=== PATIENT | male | born 1990 | race Caucasian/White ===

== ENCOUNTER 2017-09-02 10:04 | Outpatient (CLI) | payer OTHER ==
[~2017-09-02 10:04] MED LIST: ADDERALL 10 MG10 MG PO
== END 2017-09-02 11:28 | disposition home or self-care (01) ==
LOC: LAB 10:04
DX: Z00.00 Encounter for general adult medical examination without abnormal findings (principal); Z13.220 Encounter for screening for lipoid disorders; Z11.3 Encounter for screening for infections with a predominantly sexual mode of transmission; Z13.89 Encounter for screening for other disorder

== ENCOUNTER 2018-05-02 23:32 | Emergency (ER) | payer OTHER ==
[~2018-05-02] VITALS: Ht 180.3 cm; Wt 117.9 kg
[2018-05-03] MEDS ORDERED: LOTRIMIN ULTRA12 GM TOP (01:14)
[2018-05-03] MEDS ORDERED: MUPIROCIN22 GM TOP (01:14)
[2018-05-03] MEDS ORDERED: CEFADROXIL500 MG PO (01:14)
== END 2018-05-03 01:08 ==
LOC: ER 23:32
DX: N47.1 Phimosis (principal)

== ENCOUNTER → 2018-06-21 | Emergency (ER) | payer OTHER ==
[~2018-06-21] VITALS: Ht 180.3 cm; Wt 120.2 kg
[~2018-06-21] MED LIST changes: +CEFADROXIL500 MG PO; +LOTRIMIN ULTRA12 GM TOP; +MUPIROCIN22 GM TOP
== END | disposition designated cancer center or children's hospital (05) ==
LOC: ER 00:34
DX: N47.2 Paraphimosis (principal)

== ENCOUNTER 2018-07-01 06:12 | Day surgery (SDC) | payer OTHER | END 2018-07-01 12:45 | disposition home or self-care (01) | LOC: CIR.AMB 06:12 | DX: N47.1 Phimosis (principal) ==

== ENCOUNTER 2021-04-04 17:27 | Emergency (ER) | payer OTHER ==
[~2021-04-04] VITALS: Ht 180.3 cm; Wt 120.2 kg
== END 2021-04-04 19:15 | disposition home or self-care (01) ==
LOC: ER 17:27
DX: T07.XXXA Unspecified multiple injuries, initial encounter (principal); V29.9XXA Motorcycle rider (driver) (passenger) injured in unspecified traffic accident, initial encounter; Y93.9 Activity, unspecified; Y92.413 State road as the place of occurrence of the external cause; Y99.9 Unspecified external cause status

== ENCOUNTER 2021-09-14 06:54 | Emergency (ER) | payer OTHER ==
[~2021-09-14] VITALS: Ht 180.3 cm; Wt 113.4 kg
== END 2021-09-14 10:25 | disposition home or self-care (01) ==
LOC: ER 06:54
DX: M54.50 Low back pain, unspecified (principal)

== ENCOUNTER 2022-11-03 10:26 | Emergency (ER) | payer OTHER ==
[~2022-11-03] VITALS: Ht 180.3 cm; Wt 122.5 kg
== END 2022-11-03 14:29 | disposition home or self-care (01) ==
LOC: ER 10:26
DX: M54.50 Low back pain, unspecified (principal); G89.29 Other chronic pain